=== PATIENT | female | born 1980 | race Hispanic/Latino ===

== ENCOUNTER 2018-01-24 12:28 | Emergency (ER) | payer OTHER ==
[~2018-01-24] VITALS: Ht 157.5 cm; Wt 103.4 kg
[2018-01-24] MEDS ORDERED: PENICILLIN G BENZATHINE 600000 UNIT/1 ML IM STA (13:04)
[2018-01-24] MEDS ORDERED: IBUPROFEN 600 MG TAB PO STA (13:14)
[2018-01-24 13:24] VITALS: BP 136/88
== END 2018-01-24 13:28 | disposition home or self-care (01) ==
LOC: FSED 12:28
DX: J02.9 Acute pharyngitis, unspecified (principal)
CPT/HCPCS: 99282; J0561